=== PATIENT | female | born 1995 | race Caucasian/White ===

== ENCOUNTER 2021-07-17 05:18 | Emergency (ER) | payer BC ==
--- OUTSIDE RECORDS SUMMARY | 2021-07-17 05:21 | XMS REPORT | Continuity of Care Document ---
:1995 Author Organization [facility] t Address [address] [place] [place] [address] Care Team Providers Name Role Phone Ez VELA, Cam Attending Clinician Doctor Unassigned, Name Attending Clinician Unavailable Pob, Lab Main Attending Clinician Unavailable Lillian VELA Attending Clinician Unavailable 1.5, Josue Kerr Attending Clinician Unavailable Payers Payer Name Policy Type Policy Effective Date Expiration Date Sour ce Number BLUE CROSS/BLUE [id number] [address] [facility] [employer] PPO 00:00:00 - Medical POS EPO Center [id number] -Present [phone] [id number], [place] [address]VET Problems This patient has no known problems. Allergies, Adverse Reactions, Alerts Allergy Allergy Status Severity Reaction(s) Onset Inactive Treating Comm ents Source Name Type Date Date Clinician Hydrocod Drug Active 2019-[address] [facility]-Acet Allergy 0-20 [facility] - aminophe 00:00: Medical n 00 Center Mint Drug Active 2019-[address] [facility] Allergy 0-20 [facility] - 00:00: Medical 00 Center Red Propensi Active Hives, 2014-[address] [facility] (Food ty to Itching, 12-03 [facility] - Color) adverse Rash 00:00: Medical reaction 00 Center s Penicill Drug Active Anaphylaxis, [facility] Allergy Hives, 04-28 [facility] - Itching, 00:00: Medical Rash, 00 Center Swelling Poison Propensi Active Anaphylaxis, 1999-[address] [place] ty to Hives, 12-03 [facility] - Extract adverse Itching, 00:00: Medica l reaction Rash, 00 [place] s Shortness Of Breath, Swelling Midazola Drug Active Hives, 1999-12 Other [facility] m Allergy Itching, 12-03 reaction( Luke s - Nausea Only, 00:00: s): Medi kaitlynn Other (See [address] Comments), tions Swelling Poison Propensi Active Hives, 1999-[address] [place] ty to Itching, 12-03 [facility] - Extract adverse Rash, 00:00: Medical reaction Swelling 00 Center s Social History Social Habit Start Date Stop Date Quantity Comments Source Sex Assigned At [facility] Tobacco use and 2020-10-07 2020-10-07 Never used [facility] - exposure 00:00:00 00:00:00 [facility] Alcohol intake 2020-10-07 2020-10-07 Current drinker [facility] S adán [facility] - 00:00:00 00:00:00 of alcohol [facility] (finding) Alcohol Comment 2020-10-07 2020-10-07 [facility] - 00:00:00 00:00:00 [facility] Smoking Status Start Date Stop Date Source [facility] Medications Ordered Filled Start Stop Current Ordering Indication Dosage Frequency Signature Comments Components Source Medication Medication Date Date Medication? Clinician (SIG) Name Name multivitami 2019-12 Yes 1{capsu QD Take [address] n capsule 12-07 le} capsule by Samuel s - 07:07: mouth Medical 25 daily. Center levothyroxi 2018-12 Yes TK 1 T PO [facility] ne 0-02 QD [facility] - (SYNTHROID, 00:00: Medica l LEVOTHROID) 00 [place] 25 MCG tablet Vital Signs Vital Name Observation Time Observation Value Comments Source Systolic blood 2020-10-07 10:00:00 114 mm[Hg] [facility] pressure [facility] Diastolic blood 2020-10-07 10:00:00 76 mm[Hg] [facility] S t [facility] pressure [facility] Heart rate 2020-10-07 08:50:00 72 /min [facility] Body temperature 2020-10-07 08:50:00 37 [facility] Respiratory rate 2020-10-07 08:50:00 20 /min [facility] Oxygen saturation in 2020-10-07 08:50:00 99 /min [facility] - Arterial blood by Medical Ce nter Pulse oximetry Body height 2020-10-07 07:04:00 160 cm [facility] Body weight 2020-10-07 07:04:00 72.576 kg [facility] BMI 2020-10-07 07:04:00 28.34 kg/m2 [facility] Procedures Procedure Date / Time Performed Performing Clinician Sourc e FL LUMBAR PUNCTURE 2020-10-07 08:43:00 Jim Snyder [facility] - IMAGE-GUIDED [facility] MRA HEAD WITHOUT IV 2020-10-07 07:40:00 Jim Snyder [facility] CONTRAST [facility] Plan of Care Planned Activity Planned Date Details Comments Source Future Scheduled 2021-08-[address] [facility] - Test 00:00:00 (Season Ended) [code Medical Center = INFLUENZA VACCINE (Season Ended)] Future Scheduled 2020-12-[address] [facility] - Test 00:00:00 (12+) [code = [facility] DEPRESSION SCREENING (12+)] Future Scheduled [address] [facility] - Test 00:00:00 malignant neoplasm of [facility] cervix (procedure) [code = 130705956] Future Scheduled 2016 DTAP/TDAP/TD VACCINES [facility] - Test 00:00:00 (1 - Tdap) [code = Medical C enter DTAP/TDAP/TD VACCINES (1 - Tdap)] Future Scheduled 2015 HEPATITIS C [facility]CRE[facility]ING [facility] - Test 00:00:00 [code = HEPATITIS C Medical Center SCREENING] Future Scheduled 2009 COVID-19 VACCINE (1) [facility] - Test 00:00:00 [code = COVID-[address] VACCINE (1)] Encounters Start End Encounter Admission Attending Care Care Encounter Source Date/Time Date/Time Type Type Clinicians Facility Department ID 2021-04-04 2021-04-04 Telephone Grecia Hui [id number] 00:00:00 00:00:00 Cam [place] [id number] [place] [id number] Professio [phone] [facility] 2021-03-31 2021-03-31 Orders Doctor DEONTE [id number] 00:00:00 00:00:00 Only Unassigned, TASH [id number] [place] [facility] [id number] [id number] 2021-03-11 2021-03-11 Health Facilities Surveyor Chele Hdz [facility] [id number] 12:09:20 12:24:20 Visit Lab Main [place] [id number] [place] [id number] Professio [phone] [address] 2021-03-08 2021-03-08 Office Grecia Hui [facility] [id number] 13:57:12 15:12:09 Visit Cam [place] [id number] [place] [id number] Professio [phone] [address] 2021-03-08 2021-03-08 Orders Doctor DEONTE [id number] 00:00:00 00:00:00 Only Unassigned, TASH [id number] [id number] [id number] Results Test Description Test Time Test Comments Results Result [facility] e Comments MR, MRA, BRAIN, Unlisted Reason WITHOUT IV 9 for Exam - Click CONTRAST 07:27:00 Yes and Enter Reason [facility] - [facility]: d Reason for DAVIS MENJIVAR Exam->Sector CAR : scotoma bilateral 1995 Sex: F FINAL REPORT MR, MRA, BRAIN, WITHOUT IV CONTRAST HISTORY: Optic disc edema, bilateral sector scotoma COMPARISON: None. TECHNIQUE: Sagittal 3D and 2-D intracranial yuxo-by-vyfrtf MR venogram images were obtained without contrast. Maximum intensity projection images were created. FINDINGS: Deep:Internal cerebral veins: Patent.Vein of Dilan: Patent. Superficial:Superio r sagittal sinus: Patent.Straight sinus: Patent.Transverse/s igmoid sinuses: Patent on the left. 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 Incidental findings: Small left maxillary sinus retention cyst and suspected large right maxillary sinus retention cyst. The palatine, lingual, and adenoid tonsils are mildly prominent. 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 Further evaluation with CT venogram is recommended if clinically feasible (to confirm degree of stenosis/hypoplasia and evaluate size of right jugular foramen).2.No other intracranial MR venogram abnormalities. Signed: Samir Meléndez MDReport Verified Date/Time: 10/10/2020 07:27:44 Reading Location: [facility] Reading Room [address] [place] [address] head without Interface, External [facility] contrast 9 Ris In - 10/10/2020 Luke s - 07:27:00 7:29 AM CSTFINAL Medical REPORT PATIENT ID: [place] [id number] MR, MRA, BRAIN, WITHOUT IV CONTRAST HISTORY: Optic disc edema, bilateral sector scotoma COMPARISON: None. TECHNIQUE: Sagittal 3D and 2-D intracranial gziq-wx-tgajgo MR venogram images were obtained without contrast. Maximum intensity projection images were created. FINDINGS: Deep:Internal cerebral veins: Patent.Vein of Dilan: Patent. Superficial:Superio r sagittal sinus: Patent.Straight sinus: Patent.Transverse/s igmoid sinuses: Patent on the left. 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 Incidental findings: Small left maxillary sinus retention cyst and suspected large right maxillary sinus retention cyst. The palatine, lingual, and adenoid tonsils are mildly prominent. 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 Further evaluation with CT venogram is recommended if clinically feasible (to confirm degree of stenosis/hypoplasia and evaluate size of right jugular foramen).2.No other intracranial MR venogram abnormalities. Signed: Samir Meléndez Verified Date/Time: 10/10/2020 07:27:44 Reading Location: [facility] Reading Room [address] [place] [address] , LUMBAR Labs to be PUNCTURE, FLUORO 6 ordered:->No Labs 09:34:00 NeededReason for Exam:->Sector [facility] - scotoma bilateral MEDICAL CENTERName: DAVIS MENJIVAR : 1995 Sex: F FINAL REPORT FLUOROSCOPIC-GUIDED LUMBAR PUNCTURE Indication: Fluoroscopic-guided lumbar puncture is requested for CSF analysis; bilateral sector scotoma, headache Comparison: None. Discussion: Following the explanation of risks, benefits and alternative treatment options, informed consent was obtained. The patient was placed in left lateral decubitus position on the fluoroscopic table and prepped and draped in sterile fashion. 1% Xylocaine was used for local anesthesia. Under fluoroscopic guidance, a 22-gauge spinal needle was advanced into the thecal sac from a posterior approach at the L3-L4 level and through this approximately 10 mL CSF were removed and sent for analysis. Opening pressure was 48 cm of H2O. The needle was removed. The patient tolerated the procedure well and left the room in satisfactory condition without complication. Fluoroscopy time = 20 secondsDose area product (mGy*cm\S\2) = 1155Ref. Air Kerma (mGy) = 7.3 Two fluoroscopic images were sent to the PACS system. Dylw-qe-qtyi time with the patient was approximately 40 minutes. IMPRESSION: Successful fluoroscopic guided lumbar puncture. Elevated opening pressure of 48 cm of H2O. Signed: Samir Meléndez Verified Date/Time: 10/07/2020 09:34:57 Reading Location: [facility] Reading Room [address] [place] [address] Lumbar Interface, External [facility] t Puncture 6 Ris In - 10/07/2020 [facility] - Image-Guided 09:34:00 9:37 AM CSTFINAL Medic al REPORT PATIENT ID: Center [id number] FLUOROSCOPIC-GUIDED LUMBAR PUNCTURE Indication: Fluoroscopic-guided lumbar puncture is requested for CSF analysis; bilateral sector scotoma, headache Comparison: None. Discussion: Following the explanation of risks, benefits and alternative treatment options, informed consent was obtained. The patient was placed in left lateral decubitus position on the fluoroscopic table and prepped and draped in sterile fashion. 1% Xylocaine was used for local anesthesia. Under fluoroscopic guidance, a 22-gauge spinal needle was advanced into the thecal sac from a posterior approach at the L3-L4 level and through this approximately 10 mL CSF were removed and sent for analysis. Opening pressure was 48 cm of H2O. The needle was removed. The patient tolerated the procedure well and left the room in satisfactory condition without complication. Fluoroscopy time = 20 secondsDose area product (mGy*cm\S\2) = 1155Ref. Air Kerma (mGy) = 7.3 Two fluoroscopic images were sent to the PACS system. Ojvp-ud-kzqt time with the patient was approximately 40 minutes. IMPRESSION: Successful fluoroscopic guided lumbar puncture. Elevated opening pressure of 48 cm of H2O. Signed: Samir Meléndez Verified Date/Time: 10/07/2020 09:34:57 Reading Location: [facility] Room [address] [place] [address]
[2021-07-17 08:55] LABS: Urine Blood Negative (Negative); Urine Glucose Negative (Negative); Urine Protein Negative (Negative); Urine pH 5.5 (5.0-7.0)
[2021-07-17 09:18] LABS: Absolute Lymphocytes (CBC) 2.1 K/uL (0.7-4.9); Basophils % 0.4 % (0-1.3); Hematocrit 37.6 % (36.0-45.0); Lymphocytes % 31.3 % (15.3-44.8); MPV 8.3 fL (7.6-11.3); RBC Red Blood Cell Count 4.42 M/uL (3.86-4.86)
--- NOTE | 2021-07-17 09:25 | RAD REPORT ---
EXAM DESCRIPTION: CTAbdomen Pelvis W Contrast - 07/17/2021 9:13 am CLINICAL HISTORY: Abdominal pain. ABD PAIN COMPARISON: No comparisons TECHNIQUE: Biphasic CT imaging of the abdomen and pelvis was performed with 100 ml non-ionic IV cont rast. All CT scans are performed using dose optimization technique as appropriate and may include automated exposure control or mA/KV adjustment according to patient size. FINDINGS: The lung bases are clear. The liver, spleen, pancreas, adrenal glands and kidneys are within normal limits. Incidentally noted focal fat along the falciform ligament. Nondistended gallbladder but with some pericholecystic edema. No bowel obstruction, free air, free fluid or abscess. The appendix is normal. No evidence of signi ficant lymphadenopathy. Small fat containing umbilical hernia. No suspicious bony findings. IMPRESSION: Pericholecystic edema. Consider gallbladder ultrasound for further evaluation. No other acute findings are identified.
[2021-07-17 09:44] LABS: ALT/SGPT 26 U/L (12-78); AST/SGOT 13 U/L (15-37); Albumin 4.1 g/dL (3.4-5.0); Alkaline Phosphatase 51 U/L (45-117); BUN Blood Urea Nitrogen 7 mg/dL (7-18); Bicarbonate 29 mmol/L (21-32); Bilirubin Direct 0.1 mg/dL (0-0.2); Bilirubin Total 0.3 mg/dL (0.2-1.0); Glucose Level 96 mg/dL (74-106); Lipase 67 U/L (73-393); Potassium 3.6 mmol/L (3.5-5.1); Protein, Total 7.1 g/dL (6.4-8.2); Sodium Level 141 mmol/L (136-145)
--- NOTE | 2021-07-17 10:13 | RAD REPORT ---
EXAM DESCRIPTION: US - Abdomen Exam Limited - 07/17/2021 10:06 am CLINICAL HISTORY: EPIGASTRIC PAIN COMPARISON: Abdomen Pelvis W Contrast dated 07/17/2021 FINDINGS: Contractor gallbladder which is full shadowing stones. The gallbladder wall measures 2 mil limeter which is norm. Negative sonographic Anaya's sign. No pericholecystic fluid is identified. Th e common bile duct measures 3 millimeters and is normal. IMPRESSION: Cholelithiasis without sonographic evidence acute cholecystitis.
--- NOTE | 2021-07-17 10:20 | ER ---
Nurse's Notes [facility] Name: Georgina Mccann Age: 26 yrs Sex: Female : 1995 Arrival Date: 07/17/2021 Time: 05:21 Bed 9 Private MD: Diagnosis: Cholelithiasis Presentation: 07/17 05:45 Chief complaint: Patient states: she has been having epigastric pain intermittently for bb a couple of years but it has never lasted more than 10 minutes tonight it lasted 3.5 hours and she was nauseous. Coronavirus screen: At this time, the client does not indicate any symptoms associated with coronavirus-19. Ebola Screen: No symptoms or risks identified at this time. Initial Sepsis Screen: Does the patient meet any 2 criteria? No. Patient's initial sepsis screen is negative. Does the patient have a suspected source of infection? No. Patient's initial sepsis screen is negative. Risk Assessment: Do you want to hurt yourself or someone else? Patient reports no desire to harm self or others. Onset of symptoms was July 16, 2021. 05:45 Method Of Arrival: Ambulatory bb 05:45 Acuity: GASTON 3 bb Triage Assessment: 05:47 General: Appears in no apparent distress. Behavior is calm, cooperative. Pain: bb Complains of pain in epigastric area Pain currently is 1 out of 10 on a pain scale. Neuro: Level of Consciousness is awake, alert, obeys commands, Oriented to person, place, time, situation. Cardiovascular: Capillary refill < 3 seconds Patient's skin is warm and dry. Respiratory: Respiratory effort is even, unlabored, Respiratory pattern is regular. GI: Abdomen is non-distended, Reports upper abdominal pain, nausea. Derm: Skin is pink, warm \T\ dry. Musculoskeletal: Circulation, motion, and sensation intact. 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 - Social history:: Smoking status: Patient denies any tobacco usage or history of. Vital Signs: 05:45 BP 139 / 83; Pulse 81; Resp 16 S; Temp 99.2(O); Pulse Ox 100% on R/A; Weight 68.95 kg bb (R); Height 5 ft. 3 in. (160.02 cm) (R); Pain /10; 05:45 Body Mass Index 26.93 (68.95 kg, 160.02 cm) bb ED Course: 05:21 Patient arrived in ED. wm 05:47 Triage completed. bb 05:47 Arm band placed on Patient placed in waiting room, Patient notified of wait time. bb 08:03 Balwinder Jordan NP is PHCP. pm1 08:03 Shellie Moore is Attending Physician. pm1 08:32 Kirti Aparicio, RN is Primary Nurse. iw 09:13 CT Abd/Pelvis - IV Contrast Only In Process Unspecified. EDMS 10:02 US Abdomen Limited In Process Unspecified. EDMS 10:19 Isacc Das MD is Referral Physician. pm1 10:43 IV discontinued, intact, bleeding controlled, No redness/swelling at site. Pressure iw dressing applied. Administered Medications: 10:22 Not Given (Physician Discretion): Ondansetron 4 mg PO once; ODT iw 10:22 Drug: Zofran (Ondansetron) 4 mg Route: IVP; Site: left antecubital; iw 10:32 Follow up: Response: No adverse reaction iw Outcome: 10:19 Discharge ordered by . pm1 10:48 Patient left the ED. iw Signatures: Dispatcher [employer] EDMS Mera Mathis RN RN bb Kirti Aparicio RN RN iw Balwinder Jordan NP SEED [facility] pm1 Sandi Madsen
--- NOTE | 2021-07-17 10:21 | EDPHYS ---
Physician Documentation Formerly [facility] Name: Georgina Mccann Age: 26 yrs Sex: Female : 1995 Arrival Date: 07/17/2021 Time: 05:21 Bed 9 Private MD: ED Physician Shellie Moore HPI: 07/17 09:37 This 26 yrs old Female presents to ER via Ambulatory with complaints of pm1 Epigastric Pain. 09:37 The patient presents with abdominal pain in the epigastric area. Onset: The pm1 symptoms/episode began/occurred this morning, at 01:00. The symptoms radiate to right back. Associated signs and symptoms: Pertinent positives: nausea, Pertinent negatives: chest pain, diarrhea, shortness of breath, vomiting. The symptoms are described as achy, constant. Modifying factors: The symptoms are alleviated by nothing, the symptoms are aggravated by nothing. Severity of pain: in the emergency department the pain has resolved and did so earlier today. The patient has experienced similar episodes in the past, multiple times. The patient has not recently seen a physician. Patient reports history of epigastric pain for multiple years, comes and goes. Onset in her teenage years and was evaluated by music educator in cardiac etiology ruled out. But has not had any gastroenterology evaluation. Today her pain lasted longer than her usual duration of pain. Pain usually with onset at night. 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 - Social history:: Smoking status: Patient denies any tobacco usage or history of. ROS: 09:37 Constitutional: Negative for fever, chills, and weight loss, Cardiovascular: Negative pm1 for chest pain, palpitations, and edema, Respiratory: Negative for shortness of breath, cough, wheezing, and pleuritic chest pain. 09:37 Back: Negative for injury and pain, MS/Extremity: Negative for injury and deformity, Skin: Negative for injury, rash, and discoloration. 09:37 Neuro: Negative for headache, weakness, numbness, tingling, and seizure. 09:37 Abdomen/GI: Positive for abdominal pain, nausea, Negative for vomiting, diarrhea, constipation. 09:37 All other systems are negative. pm1 Exam: 09:37 Constitutional: This is a well developed, well nourished patient who is awake, alert, pm1 and in no acute distress. Head/Face: Normocephalic, atraumatic. 09:37 Back: No spinal tenderness. No costovertebral tenderness. Full range of motion. Skin: Warm, dry with normal turgor. Normal color with no rashes, no lesions, and no evidence of cellulitis. MS/ Extremity: Pulses equal, no cyanosis. Neurovascular intact. Full, normal range of motion. 09:37 Eyes: Exam is negative for acute changes, Extraocular movements: no acute changes, Conjunctiva: normal, no injection. 09:37 ENT: Exam is negative for acute changes, Mouth: Lips: normal, Oral mucosa: normal, pink and intact, moist. 09:37 Cardiovascular: Exam negative for acute changes, Rate: normal, Rhythm: regular, Pulses: no pulse deficits are appreciated, Heart sounds: normal, normal S1and S2. 09:37 Respiratory: Exam negative for acute changes, respiratory distress, shortness of breath, Breath sounds: are clear throughout. 09:37 Abdomen/GI: Exam negative for acute changes, Inspection: abdomen appears normal, Palpation: abdomen is soft and non-tender, in all quadrants. 09:37 Neuro: Exam negative for acute changes, Orientation: is normal, Mentation: is normal, Motor: is normal, moves all fours. Vital Signs: 05:45 BP 139 / 83; Pulse 81; Resp 16 S; Temp 99.2(O); Pulse Ox 100% on R/A; Weight 68.95 kg bb (R); Height 5 ft. 3 in. (160.02 cm) (R); Pain 1/10; 05:45 Body Mass Index 26.93 (68.95 kg, 160.02 cm) bb MDM: 08:38 Patient medically screened. pm1 09:41 ED course: Informed the patient of current CT findings and recommendation for pm1 ultrasound radiologist for further evaluation. 09:51 Data reviewed: vital signs. Data interpreted: Pulse oximetry: on room air is 100 %. pm1 Interpretation: normal. 10:18 Counseling: I had a detailed discussion with the patient and/or guardian regarding: the pm1 historical points, exam findings, and any diagnostic results supporting the discharge/admit diagnosis, lab results, radiology results, the need for outpatient follow up, a general surgeon, to return to the emergency department if symptoms worsen or persist or if there are any questions or concerns that arise at home. 07/17 08:27 Order name: Basic Metabolic Panel; Complete Time: 09:48 pm1 07/17 08:27 Order name: CBC with Diff; Complete Time: 09:33 pm1 07/17 08:27 Order name: Hepatic Function; Complete Time: 09:48 pm1 07/17 08:27 Order name: Lipase; Complete Time: 09:48 pm1 07/17 08:55 Order name: Urine Dipstick-Ancillary; Complete Time: 09:33 EDMS 07/17 08:59 Order name: Urine --Ancillary (enter results); Complete Time: 09:56 iw 07/17 08:27 Order name: IV Saline Lock; Complete Time: 08:58 pm1 07/17 08:27 Order name: Labs collected and sent; Complete Time: 08:58 pm1 07/17 08:27 Order name: CT Abd/Pelvis - IV Contrast Only; Complete Time: 09:33 pm1 07/17 08:27 Order name: Urine Dipstick-Ancillary (obtain specimen); Complete Time: 08:58 pm1 07/17 09:35 Order name: US Abdomen Limited; Complete Time: 10:17 pm1 07/17 08:27 Order name: Urine Test (obtain specimen); Complete Time: 08:58 pm1 07/17 09:36 Order name: NPO; Complete Time: 10:17 pm1 Administered Medications: 10:22 Not Given (Physician Discretion): Ondansetron 4 mg PO once; ODT iw 10:22 Drug: Zofran (Ondansetron) 4 mg Route: IVP; Site: left antecubital; iw 10:32 Follow up: Response: No adverse reaction iw Disposition: 16:45 Co-signature as Attending Physician, Shellie Moore I agree with the assessment and plan sp3 of care. Disposition Summary: 07/17/21 10:19 Discharge Ordered Location: Home pm1 Problem: new pm1 Symptoms: have improved pm1 Condition: Stable pm1 Diagnosis - Cholelithiasis pm1 Followup: pm1 - With: Emergency Department - When: As needed - Reason: Worsening of condition Followup: pm1 - With: Isacc Das MD - When: 2 - 3 days - Reason: Recheck today's complaints, Continuance of care, Re-evaluation by your physician Discharge Instructions: - Discharge Summary Sheet pm1 - Cholelithiasis pm1 Forms: - Work release form iw - Medication Reconciliation Form pm1 - Thank You Letter pm1 - Antibiotic Education pm1 - Prescription Opioid Use pm1 Prescriptions: - ondansetron 4 mg Oral tablet,disintegrating - place 1 tablet by TRANSLINGUAL route every 8 hours As needed; 15 tablet; pm1 Refills: 0, Product Selection Permitted - dicyclomine 20 mg Oral Tablet - take 1 tablet by ORAL route every 6 hours As needed; 20 tablet; Refills: 0, pm1 Product Selection Permitted Signatures: Dispatcher [employer] Mera Rock RN RN bb Williams, Irene, RN RN iw Marinas, Patrick, IZABELA PHYSICIAN INTERVENTIONAL CARDIOLOGIST pm1 Shellie Moore sp3 Corrections: (The following items were deleted from the chart) 09:49 09:37 Onset: The symptoms/episode began/occurred this morning, pm1 pm1
[2021-07-17] MEDS ORDERED: ONDANSETRON 4 MG/2 ML VIAL ONE (10:42)
[2021-07-17 10:55] VITALS: BP 139/83; TEMP 99.2; O2SAT 100
== END 2021-07-17 10:48 | disposition home or self-care (01) ==
LOC: ER 05:18
DX: K80.20 Calculus of gallbladder without cholecystitis without obstruction (principal); E03.9 Hypothyroidism, unspecified; Z88.0 Allergy status to penicillin; Z88.8 Allergy status to other drugs, medicaments and biological substances
CPT/HCPCS: 85025; 80048; 36415; 81025; 82565; 80076; 81003; 83690; 74177; 76705; Q9967; J2405; 96374; 99283

== ENCOUNTER 2021-07-26 08:09 | Day surgery (SDC) | payer BC ==
[2021-07-26] MEDS ORDERED: CEFOXITIN/SWI 1gm 0 GM/0 ML SYR ONE (08:58)
[2021-07-26] MEDS ORDERED: Ringers Lactate 1,000 ML IV ONE ×2 (08:58→11:10)
[2021-07-26] MEDS ORDERED: propofoL 200 MG/20 ML VIAL IV ONE (09:04)
[2021-07-26] MEDS ORDERED: MIDAZOLAM HCL 2 MG/2 ML INJ ONE (09:04)
[2021-07-26] MEDS ORDERED: LIDOCAINE 1% MPF 2 ML AMPULE ONE (09:04)
[2021-07-26] MEDS ORDERED: FENTANYL CITR 100 MCG/2 ML ONE (09:04)
[2021-07-26 09:09] VITALS: O2SAT 100
[2021-07-26] MEDS ORDERED: ROCURONIUM 50 MG/5 ML VIAL IV ONE (09:21)
[2021-07-26] MEDS ORDERED: BUPIVACAINE 0.25% PF 10 ML VIAL ONE (09:51)
[2021-07-26] MEDS ORDERED: CLINDAMYCIN 300MG D5W 300 MG/50 ML BAG IV ONE (10:00)
[2021-07-26] MEDS ORDERED: dexAMETHasone 10 MG/ML VIAL ONE (10:10)
[2021-07-26] MEDS ORDERED: KETOROLAC 30 MG/ML INJ ONE (10:10)
[2021-07-26] MEDS ORDERED: ONDANSETRON 4 MG/2 ML VIAL ONE (10:11)
[2021-07-26] MEDS ORDERED: NEOSTIGMINE 1 MG/ML -5 ML ONE (10:25)
[2021-07-26] MEDS ORDERED: GLYCOPYRROLATE 0.2 MG/ML SYR ONE ×2 (10:25)
--- NOTE | 2021-07-26 10:41 | P.OP ---
Preoperative diagnosis: Cholecystitis with Cholelithiasis Postoperative diagnosis: Cholecystitis with Cholelithiasis Primary procedure: Laparoscopic Cholecystectomy Secondary procedure: ICG Cholangiography Anesthesia: GETA + Local Estimated blood loss: <20cc Specimen: Gallbladder Findings: floppy gallbladder, anterior / posterior branch of cystic artery Complications: None Transferred to: Recovery Room Condition: Good
--- NOTE | 2021-07-26 11:14 | OP ---
Date of Procedure: 07/26/2021 Surgeon: Isacc Das MD, Preoperative Diagnosis: Cholecystitis with cholelithiasis. Postoperative Diagnosis: Cholecystitis with cholelithiasis. Procedures Performed: 1.Laparoscopic cholecystectomy. 2.ICG cholangiography. Anesthesia: General endotracheal plus local with 0.25% Marcaine. Estimated Blood Loss: Less than 20 mL. Specimen: Gallbladder. Findings: 1.Floppy gallbladder, distended with stones. 2.Anterior posterior branch of the cystic artery. Complications: None. Disposition: The patient was transferred to recovery room in good condition. Procedure In Detail: After informed consent was obtained, the patient was brought to the operating r oom, prepped and draped in the usual sterile fashion after adequate anesthesia was achieved. Supraum bilical area was anesthetized with 0.25% Marcaine and sharply incised. A 5 mm 0-degree optical troca r was introduced in the abdomen without evidence of complication. Insufflation was obtained to 15 mm Hg at this time. There was no injury to vital structures upon entry to the abdomen. Two additional trocars were placed, 1 in the epigastrium and 1 in the right upper quadrant. Both of these were cristóbal larly anesthetized and sharply incised. A 5 mm trocars were placed under direct visualization withou t evidence of complication. The umbilical trocar was then up-sized to a 12 mm under direct visualiza tion without evidence of complication. The patient positioned head up right-side up position. Ratch eted grasper was used to grasp the patient's gallbladder, placed toward the patient's right shoulder. Dissection continued down to the Varsha pouch of the gallbladder. ICG cholangiography was perfor med at this point to visualize the cystic duct and common duct confluence and junction. The cystic d uct was skeletonized along with additional structures identified as the anterior posterior branch of cystic artery. These were skeletonized and the structures were noted to be entering the gallbladder. After these structure was skeletonized, critical view of safety was obtained at this point. Double titanium clips were placed doubly on the proximal side and singly on the distal side of both cystic duct and cystic arteries. At this point, the structures were ligated with Endo Merlin. The gallblad lan was then removed from the hepatic fossa with minimal bleeding from the hepatic fossa requiring so me fulguration in which hemostasis was achieved at this point with minimal blood loss. The gallbladd er was then placed in EndoCatch bag, removed the umbilical trocar, sent off for pathologic examinatio n. The abdomen was copiously irrigated multiple times and suctioned out until completely clear. Cli ps were found to be in good anatomic position without any bleeding. No additional hemostatic maneuve rs were required. The patient was positioned back in neutral position. Then, the effluent was sucti oned out. The patient's umbilical trocar site was then closed using a Gurpreet-Star suture passer with 0 Vicryl in an interrupted fashion with good approximation of tissues. The remaining trocars we re removed. The abdomen was completely desufflated. All skin incisions were copiously irrigated and closed with 4-0 Monocryl in a running fashion and Dermabond placed over top. The patient tolerated the procedure well without evidence of complication and transferred to PACU in good condition. All c ounts were correct at the end of the case. LIZ/MARIAN Voice ID: [id number] Report ID: [id number]
[2021-07-26] MEDS: FENTANYL CITR 100 MCG/2 ML ONE ×2 (11:28→11:35)
[2021-07-26] MEDS ORDERED: PROMETHAZINE INJ 25 MG/ML AMP ONE (11:37)
[2021-07-26] MEDS ORDERED: MEPERIDINE HCL 25 MG/ML SYR ONE (11:42)
[2021-07-26 12:01] VITALS: BP 117/60; TEMP 97.9
[2021-07-26] MEDS ORDERED: HYDROCODONE/APAP 7.5/325 MG TAB ONE (12:49)
== END 2021-07-26 13:00 | disposition home or self-care (01) ==
LOC: OR 08:09
PROVIDERS: ATTEND Surgery
PROC: BF03YZZ Plain Radiography of Gallbladder and Bile Ducts using Other Contrast (ICD-10-PCS; 2021-07-26)
PROC: 0FT44ZZ Resection of Gallbladder, Percutaneous Endoscopic Approach (ICD-10-PCS; principal; 2021-07-26 10:00)
DX: K80.10 Calculus of gallbladder with chronic cholecystitis without obstruction (principal); Z20.822 Contact with and (suspected) exposure to COVID-19
CPT/HCPCS: 36415; 84703; 88304; 47563; U0003; J2704; J2550; J3010 ×2; J1100; J2175; J2710; J7120 ×2; J2405; J2250

== ENCOUNTER 2021-08-03 00:29 | Emergency (ER) | payer BC ==
--- OUTSIDE RECORDS SUMMARY | 2021-08-03 00:33 | XMS REPORT | Continuity of Care Document ---
:1995 Author Organization [facility] t Address [address] [place] [place] [address] Care Team Providers Name Role Phone Ez VELA, David Attending Clinician Doctor Unassigned, Name Attending Clinician Unavailable Pob, Lab Main Attending Clinician Unavailable Lillian VELA Attending Clinician Unavailable 1.5, Josue Kerr Attending Clinician Unavailable Payers Payer Name Policy Type Policy Number Effective Date Expiration Date S ource Problems This patient has no known problems. [...] Propensi Active Anaphylaxis, 1999-[address] [place] ty to Hives, 12-03 [facility] - Extract adverse Itching, 00:00: Medica l reaction Rash, 00 Center s Shortness Of Breath, Swelling [facility] Active Hives, 1999-[address] [facility] Allergy Itching, 12-03 reaction( Luke s - Nausea Only, 00:00: s): Medi kaitlynn Other (See [address] Comments), tions Swelling Poison Propensi Active Hives, 1999-[address] [place] [facility] to Itching, 12-03 [facility] - Extract adverse Rash, 00:00: Medical reaction Swelling 00 Center s Social History Social Habit Start Date Stop Date Quantity Comments Source Sex Assigned At F [facility] The [facility] Tobacco use and 2020-10-07 2020-10-07 Never used BRITANY Ortiz kes - exposure 00:00:00 00:00:00 [facility] Center Alcohol intake 2020-10-07 2020-10-07 Current drinker BRITANY mccain [facility] - 00:00:00 00:00:00 of alcohol [facility] (finding) Alcohol Comment 2020-10-07 2020-10-07 occ [facility] Diamond kes - 00:00:00 00:00:00 Medical Center Smoking Status Start Date Stop Date Source Never smoker [facility] edical [place] Medications Ordered Filled Start Stop Current Ordering Indication Dosage Frequency Signature Comments Components Source Medication Medication Date Date Medication? Clinician (SIG) [facility] 2019[facility] Yes 1{capsu QD Take [address] n capsule 1-06 le} capsule by Samuel s - 07:07: mouth Medical 25 daily. Center multivitami 2019-12 Yes 1{capsu QD Take [address] n capsule 1-06 le} capsule by Darake s - 07:07: mouth Medical 25 daily. [place] levothyroxi 2018-12 Yes TK [address] [facility] ne 0-02 QD [facility] - (SYNTHROID, 00:00: Medica l LEVOTHROID) 00 Center 25 MCG tablet levothyroxi 2018-12 Yes TK [address] T [address] [facility] 0-02 QD [facility] - (SYNTHROID, 00:00: Medica l LEVOTHROID) 00 Center 25 MCG tablet Vital Signs Vital Name Observation Time Observation Value Comments Source Systolic blood 2020-10-07 10:00:00 114 mm[Hg] [facility] St kes pressure [facility] Diastolic blood 2020-10-07 10:00:00 76 mm[Hg] [facility] S [facility] Heart rate 2020-10-07 08:50:00 72 /min [facility] Body temperature 2020-10-07 08:50:00 37 Eleonora [facility] Respiratory rate 2020-10-07 08:50:00 20 /min [facility] Oxygen saturation in 2020-10-07 08:50:00 99 /min [facility] - Arterial blood by Medical Ce nter Pulse oximetry Body height 2020-10-07 07:04:00 160 cm [facility] Body weight 2020-10-07 07:04:00 72.576 kg [facility] BMI 2020-10-07 07:04:00 28.34 kg/m2 [facility] Procedures Procedure Date / Time Performed Performing Clinician Sour e FL LUMBAR PUNCTURE 2020-10-07 08:43:00 Jim Snyder BRITANY [facility] IMAGE-GUIDED [facility] MRA HEAD WITHOUT IV 2020-10-07 07:40:00 Jim Snyder [facility] CONTRAST [facility] Plan of Care Planned Activity Planned Date Details Comments Source Future Scheduled 2021-08-[address] [facility] - Test 00:00:00 (Season Ended) [code Medical Center = INFLUENZA VACCINE (Season Ended)] Future Scheduled 2021-08-[address] [facility] - Test 00:00:00 (Season Ended) [code Medical Center = INFLUENZA VACCINE (Season Ended)] Future Scheduled 2020-12-[address] [facility] - Test 00:00:00 (12+) [code = [facility] DEPRESSION SCREENING (12+)] Future Scheduled 2020-12-[address] [facility] - Test 00:00:00 (12+) [code = [facility] DEPRESSION SCREENING (12+)] Future Scheduled [address] - Test 00:00:00 malignant neoplasm of [facility] cervix (procedure) [code = 441362371] Future Scheduled [address] [facility] - Test 00:00:00 malignant [facility] cervix (procedure) [code = 269754397] Future Scheduled 2016 DTAP/TDAP/TD VACCINES [facility] - Test 00:00:00 (1 - Tdap) [code = Medical C enter DTAP/TDAP/TD VACCINES (1 - Tdap)] Future Scheduled 2016 DTAP/TDAP/TD VACCINES [facility] - Test 00:00:00 (1 - Tdap) [code = Medical C enter DTAP/TDAP/TD VACCINES (1 - Tdap)] Future Scheduled 2015 HEPATITIS C [facility]CREENING [facility] - Test 00:00:00 [code = HEPATITIS C Medical Center SCREENING] Future Scheduled 2015 HEPATITIS C [facility]CRE[facility]ING [facility] Test 00:00:00 [code = HEPATITIS C Medical Center SCREENING] Future Scheduled 2009 COVID-19 VACCINE (1) [facility] - Test 00:00:00 [code = COVID-[address] VACCINE (1)] Future Scheduled 2009 COVID-19 VACCINE (1) [facility] - Test 00:00:00 [code = COVID-[address] VACCINE (1)] Encounters Start End Encounter Admission Attending Care Care Encounter Source Date/Time Date/Time Type Type Clinicians Facility Department ID 2021-04-04 2021-04-04 Telephone Grecia Hui WAJORDI [id number] 00:00:00 00:00:00 David Felipe [id number] [place] [id number] Professio [id number] [facility] 2021-03-31 2021-03-31 Orders Doctor DEONTE [id number] 00:00:00 00:00:00 Only Unassigned, TASH [id number] [place] [facility] [id number] 2021-03-11 2021-03-11 Program Technician Chele Hdz [id number] 12:09:20 12:24:20 Visit Lab Main [place] [id number] Karen [id number] Professio [id number] [facility] 2021-03-08 2021-03-08 Office Grecia Hui WAJORDI [id number] 13:57:12 15:12:09 Visit David Felipe [id number] [place] [id number] [place] [id number] [address] 2021-03-08 2021-03-08 Orders DEONTE [id number] 00:00:00 00:00:00 Only Unassigned, TASH [id number] [place] [id number] 2020-10-07 2020-10-07 [facility] [id number] [facility] 06:21:32 23:59:00 Encounter [facility] 2020-10-07 2020-10-[address] [facility] [id number] [facility] 06:21:25 23:59:00 Encounter 1.5, [facility] Josue [facility] 2020-09-20 2020-09-20 [facility] [id number] [facility] 00:00:00 00:00:00 Orders [facility] Results Test Description Test Time Test Comments Results Result [facility] e Comments MR, MRA, BRAIN, Unlisted Reason WITHOUT IV 9 for Exam - Click CONTRAST 07:27:00 Yes and Enter Reason [facility] - Below->[facility] Reason for DAVIS MENJIVAR Exam->Sector CAR : scotoma bilateral 1995 Sex: F FINAL REPORT MR, MRA, BRAIN, WITHOUT IV CONTRAST HISTORY: Optic disc edema, bilateral sector scotoma COMPARISON: None. TECHNIQUE: Sagittal 3D and 2-D intracranial plto-fl-soeyxs MR venogram images were obtained without contrast. [...] intracranial MR venogram abnormalities. Signed: Samir Meléndez [facility] Verified Date/Time: 10/10/2020 07:27:44 Reading Location: [facility] Reading Room [address] [place] [address] head without 0 Interface, External [facility] contrast 9 Ris In - 10/10/2020 [facility] - 07:27:00 7:29 AM CSTFINAL Medical REPORT PATIENT ID: [place] [id number] MR, MRA, BRAIN, WITHOUT IV CONTRAST HISTORY: Optic disc edema, bilateral sector scotoma COMPARISON: None. TECHNIQUE: Sagittal 3D and 2-D intracranial zmhz-an-rkpdxf MR venogram images were obtained without contrast. [...] Meléndez Verified Date/Time: 10/10/2020 07:27:44 Reading Location: [facility] Reading Room [address] [place] [address] head without Interface, External [facility] IV contrast 9 Ris In - 10/10/2020 Luke [facility] - 07:27:00 7:29 AM CSTFINAL Medical REPORT PATIENT ID: Center [id number] MR, MRA, BRAIN, WITHOUT IV CONTRAST HISTORY: Optic disc edema, bilateral sector scotoma COMPARISON: None. TECHNIQUE: Sagittal 3D and 2-D intracranial zizp-dt-ewbwee MR venogram images were obtained without contrast. [...] Meléndez Verified Date/Time: 10/10/2020 07:27:44 Reading Location: [facility] Reading Room [address] [place] [address] , LUMBAR Labs to be PUNCTURE, FLUORO [...] images were sent to the PACS system. Vwqr-tg-aupg time with the patient was approximately 40 minutes. IMPRESSION: Successful fluoroscopic guided lumbar puncture. Elevated opening pressure of 48 cm of H2O. Signed: Samir Meléndez Verified Date/Time: 10/07/2020 09:34:57 Reading Location: [facility] Reading Room [address] [place] [address] Lumbar 2020-11-0 Interface, External [facility] Puncture 6 Ris In - 10/07/2020 [facility] - Image-Guided 09:34:00 9:37 AM CSTFINAL Medic al REPORT PATIENT ID: Meli [id number] FLUOROSCOPIC-GUIDED LUMBAR PUNCTURE Indication: Fluoroscopic-guided lumbar puncture [...] images were sent to the PACS system. Gjvd-qq-hjkp time with the patient was approximately 40 minutes. IMPRESSION: Successful fluoroscopic guided lumbar puncture. Elevated opening pressure of 48 cm of H2O. Signed: Samir Meléndez Verified Date/Time: 10/07/2020 09:34:57 Reading Location: [facility] Room [address] [place] [address] Lumbar 2019-11-0 Interface, External [facility] t Puncture 6 Ris In - 10/07/2020 [facility] - Image-Guided 09:34:00 9:37 AM CSTFINAL Medic al REPORT PATIENT ID: Center [id number] FLUOROSCOPIC-GUIDED LUMBAR PUNCTURE Indication: Fluoroscopic-guided lumbar puncture [...] images were sent to the PACS system. Zdii-ya-cfnc time with the patient was approximately 40 minutes. IMPRESSION: Successful fluoroscopic guided lumbar puncture. Elevated opening pressure of 48 cm of H2O. Signed: Samir Meléndez MDReport Verified Date/Time: 10/07/2020 09:34:57 Reading Location: [facility] Room [address] [place] [address]
[2021-08-03] MEDS ORDERED: ONDANSETRON 4 MG/2 ML VIAL ONE (01:15)
[2021-08-03] MEDS ORDERED: MORPHINE 4 MG/ML SYR ONE (01:16)
[2021-08-03 01:31] LABS: Absolute Lymphocytes (CBC) 1.3 K/uL (0.7-4.9); Basophils % 0.5 % (0-1.3); Hematocrit 39.1 % (36.0-45.0); Lymphocytes % 25.4 % (15.3-44.8); MPV 8.5 fL (7.6-11.3); RBC Red Blood Cell Count 4.63 M/uL (3.86-4.86)
[2021-08-03 01:42] LABS: Urine Blood 2+ (Negative); Urine Glucose Negative (Negative); Urine Protein Negative (Negative); Urine Specific Gravity 1.025 (1.005-1.030)
[2021-08-03 01:49] LABS: Albumin 4.5 g/dL (3.4-5.0); Alkaline Phosphatase 305 U/L (45-117); BUN Blood Urea Nitrogen 14 mg/dL (7-18); Bicarbonate 25 mmol/L (21-32); Bilirubin Direct 1.6 mg/dL (0-0.2); Bilirubin Total 2.2 mg/dL (0.2-1.0); Glucose Level 101 mg/dL (74-106); Lipase 135 U/L (73-393); Potassium 3.2 mmol/L (3.5-5.1); Protein, Total 7.8 g/dL (6.4-8.2); Sodium Level 139 mmol/L (136-145)
[2021-08-03 01:50] LABS: ALT/SGPT 1460 U/L (12-78); AST/SGOT 841 U/L (15-37)
--- NOTE | 2021-08-03 01:59 | EDPHYS ---
Physician Documentation [facility] Name: Georgina Mccann Age: 26 yrs Sex: Female : 1995 Arrival Date: 08/03/2021 Time: 00:31 Bed 5 Private MD: ED Physician Juan Antonio Valladares HPI: 08/03 00:56 This 26 yrs old Female presents to ER via Ambulatory with complaints of maria fernanda Abdominal Pain - Had Gallbladder Surgery A Wk Ago. 00:56 The patient presents with abdominal pain in the epigastric area, in the upper abdomen. maria fernanda Onset: The symptoms/episode began/occurred 3 day(s) ago. The symptoms radiate to back. Associated signs and symptoms: none. The symptoms are described as constant, crampy. Modifying factors: The symptoms are alleviated by nothing, the symptoms are aggravated by nothing. Severity of pain: At its worst the pain was mild moderate in the emergency department the pain has improved mildly. The patient has not experienced similar symptoms in the past. 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 - Social history:: Smoking status: Patient denies any tobacco usage or history of. - Family history:: not pertinent. ROS: 00:56 Constitutional: Negative for fever, chills, and weight loss, Eyes: Negative for injury, maria fernanda pain, redness, and discharge, ENT: Negative for injury, pain, and discharge, Neck: Negative for injury, pain, and swelling, Cardiovascular: Negative for chest pain, palpitations, and edema, Respiratory: Negative for shortness of breath, cough, wheezing, and pleuritic chest pain, Back: Negative for injury and pain, : Negative for injury, bleeding, discharge, and swelling, MS/Extremity: Negative for injury and deformity, Skin: Negative for injury, rash, and discoloration, Neuro: Negative for headache, weakness, numbness, tingling, and seizure, Psych: Negative for depression, anxiety, suicide ideation, homicidal ideation, and hallucinations, Allergy/Immunology: Negative for hives, rash, and allergies, Endocrine: Negative for neck swelling, polydipsia, polyuria, polyphagia, and marked weight changes, Hematologic/Lymphatic: Negative for swollen nodes, abnormal bleeding, and unusual bruising. 00:56 Abdomen/GI: Positive for abdominal pain, of the epigastric area, right upper quadrant and left upper quadrant. Exam: 00:56 Constitutional: This is a well developed, well nourished patient who is awake, alert, maria fernanda and in no acute distress. Head/Face: Normocephalic, atraumatic. Eyes: Pupils equal round and reactive to light, extra-ocular motions intact. Lids and lashes normal. Conjunctiva and sclera are non-icteric and not injected. Cornea within normal limits. Periorbital areas with no swelling, redness, or edema. ENT: Nares patent. No nasal discharge, no septal abnormalities noted. Tympanic membranes are normal and external auditory canals are clear. Oropharynx with no redness, swelling, or masses, exudates, or evidence of obstruction, uvula midline. Mucous membranes moist. Neck: Trachea midline, no thyromegaly or masses palpated, and no cervical lymphadenopathy. Supple, full range of motion without nuchal rigidity, or vertebral point tenderness. No Meningismus. Chest/axilla: Normal chest wall appearance and motion. Nontender with no deformity. No lesions are appreciated. Cardiovascular: Regular rate and rhythm with a normal S1 and S2. No gallops, murmurs, or rubs. Normal PMI, no JVD. No pulse deficits. Respiratory: Lungs have equal breath sounds bilaterally, clear to auscultation and percussion. No rales, rhonchi or wheezes noted. No increased work of breathing, no retractions or nasal flaring. Back: No spinal tenderness. No costovertebral tenderness. Full range of motion. Skin: Warm, dry with normal turgor. Normal color with no rashes, no lesions, and no evidence of cellulitis. MS/ Extremity: Pulses equal, no cyanosis. Neurovascular intact. Full, normal range of motion. Neuro: Awake and alert, GCS 15, oriented to person, place, time, and situation. Cranial nerves II-XII grossly intact. Motor strength 5/5 in all extremities. Sensory grossly intact. Cerebellar exam normal. Normal gait. Psych: Awake, alert, with orientation to person, place and time. Behavior, mood, and affect are within normal limits. 00:56 Abdomen/GI: Inspection: abdomen appears normal, Bowel sounds: normal, Palpation: moderate abdominal tenderness, in the epigastric area, right upper quadrant and left upper quadrant. Vital Signs: 00:47 BP 140 / 90; Pulse 98; Resp 18 S; Temp 98.3(O); Pulse Ox 100% on R/A; Weight 68.95 kg bb (R); Height 5 ft. 3 in. (160.02 cm) (R); Pain 8/10; 01:15 BP 117 / 80; Pulse 77; Resp 17; Temp 98.2; Pulse Ox 98% on R/A; ch4 02:06 BP 109 / 81; Pulse 65; Resp 17; Temp 98.3; Pulse Ox 97% on R/A; ch4 00:47 Body Mass Index 26.93 (68.95 kg, 160.02 cm) bb MDM: 00:51 Patient medically screened. maria fernanda 00:57 Differential diagnosis: bowel obstruction, diverticulitis, gastritis, non-specific abd maria fernanda pain, Peptic Ulcer Disease, Ureterolithiasis, urinary tract infection. Data reviewed: vital signs, nurses notes, lab test result(s), radiologic studies, CT scan. 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 Test interpretation: by ED physician or midlevel provider:. Counseling: I had a detailed discussion with the patient and/or guardian regarding: the historical points, exam findings, and any diagnostic results supporting the discharge/admit diagnosis, lab results, radiology results. 08/03 00:48 Order name: Basic Metabolic Panel [facility] 08/03 00:48 Order name: CBC with Diff [facility] 08/03 00:48 Order name: Hepatic Function [facility] 08/03 00:48 Order name: Lipase [facility] 08/03 00:48 Order name: Basic Metabolic Panel; Complete Time: 01:51 [facility] 08/03 00:48 Order name: CBC with Automated Diff; Complete Time: 01:51 [facility] 08/03 00:49 Order name: Liver (Hepatic) Function; Complete Time: 01:51 EDMS 08/03 00:49 Order name: Lipase; Complete Time: 01:51 EDMS 08/03 01:42 Order name: Urine Dipstick-Ancillary; Complete Time: 01:51 EDMS 08/03 01:44 Order name: Urine --Ancillary (enter results) [facility] 08/03 01:44 Order name: Urine Microscopic Only [facility] 08/03 01:44 Order name: Urine --Ancillary; Complete Time: 03:41 EDMS 08/03 01:44 Order name: Urine Microscopic Only; Complete Time: 02:14 EDVT 08/03 00:48 Order name: IV Saline Lock; Complete Time: 01:10 [facility] 08/03 00:48 Order name: Labs collected and sent; Complete Time: 01:09 [facility] 08/03 00:48 Order name: Urine Dipstick-Ancillary (obtain specimen); Complete Time: 01:26 [facility] 08/03 00:48 Order name: CT Abd/Pelvis - IV Contrast Only [facility] 08/03 02:14 Order name: Urine Culture [facility] 08/03 03:14 Order name: SARS-COV-2 RT PCR; Complete Time: 03:41 EDMS Administered Medications: 01:00 Drug: morphine 4 mg {Note: RASS 0.} Route: IVP; Site: right antecubital; bb 01:01 Drug: Zofran (Ondansetron) 4 mg Route: IVP; Site: right antecubital; bb 03:05 Drug: levofloxacin 500 mg Volume: 100 ml; Route: IVPB; Infused Over: 60 mins; Site: ch4 left antecubital; 04:29 Drug: NS 0.9% with KCl 20 mEq/L 1000 ml Route: IV; Rate: 125 ml/hr; Site: right ch4 antecubital; Point of Care Testing: Urine : 01:38 hCG Reading: Negative; Control Reading: Positive; ch4 Disposition Summary: 08/03/21 01:59 Transfer Ordered Transfer Location: [facility] maria fernanda Reason: Higher level of care maria fernanda Condition: Stable maria fernanda Problem: new maria fernanda Symptoms: have improved maria fernanda Accepting Physician: to [facility] [place](08/03/21 04:49) ch4 Diagnosis - Upper abdominal pain, unspecified - choledocolithiasis maria fernanda Forms: - Medication Reconciliation Form maria fernanda - SBAR form maria fernanda Signatures: Dispatcher [employer] EDMS Juan Antonio Valladares MD MD cha Mickail, Joel, PA PA jmm Ballard, Brenda, RN RN bb Ranulfo Harrington, LOCAL DELIVERY TRUCK DRIVER-C LOCAL DELIVERY TRUCK DRIVER-Cla1 Cecile Gomez RN RN ch4 Corrections: (The following items were deleted from the chart) 02:17 02:03 CORONAVIRUS+.BRZ ordered. EDVT EDMS 04:49 01:59 to [facility] maria fernanda ch4
--- NOTE | 2021-08-03 01:59 | ER ---
Nurse's Notes [facility] Name: Georgina Mccann Age: 26 yrs Sex: Female : 1995 Arrival Date: 08/03/2021 Time: 00:31 Bed 5 Private MD: Diagnosis: Upper abdominal pain, unspecified-choledocolithiasis Presentation: 08/03 00:47 Chief complaint: Patient states: she had gallbladder surgery last week and has been bb having intermittent pain tonight it got worse denies vomiting or diarrhea positive for nausea. Coronavirus screen: At this time, the client does not indicate any symptoms associated with coronavirus-19. Ebola Screen: No symptoms or risks identified at this time. Initial Sepsis Screen: Does the patient meet any 2 criteria? No. Patient's initial sepsis screen is negative. Does the patient have a suspected source of infection? No. Patient's initial sepsis screen is negative. Risk Assessment: Do you want to hurt yourself or someone else? Patient reports no desire to harm self or others. Onset of symptoms was August 03, 2021. 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 - Social history:: Smoking status: Patient denies any tobacco usage or history of. - Family history:: not pertinent. Screenin:55 Abuse screen: Denies threats or abuse. Nutritional screening: No deficits noted. bb Tuberculosis screening: No symptoms or risk factors identified. Fall Risk None identified. Assessment: 00:55 General: Appears in no apparent distress. uncomfortable, Behavior is cooperative, bb anxious. Pain: Complains of pain in abdomen Pain currently is 8 out of 10 on a pain scale. Neuro: Level of Consciousness is awake, alert, obeys commands, Oriented to person, place, time, situation. Cardiovascular: Capillary refill < 3 seconds Patient's skin is warm and dry. Respiratory: Respiratory effort is even, unlabored, Respiratory pattern is regular. GI: Reports upper abdominal pain, nausea, Patient currently denies diarrhea, vomiting. Derm: Skin is pink, warm \T\ dry. Musculoskeletal: Circulation, motion, and sensation intact. 02:07 Reassessment: Patient is alert, oriented x 3, equal unlabored respirations, skin ch4 warm/dry/pink. Patient states feeling better. GI: No deficits noted. : No deficits noted. 04:36 GI: ch4 Vital Signs: 00:47 BP 140 / 90; Pulse 98; Resp 18 S; Temp 98.3(O); Pulse Ox 100% on R/A; Weight 68.95 kg bb (R); Height 5 ft. 3 in. (160.02 cm) (R); Pain 8/10; 01:15 BP 117 / 80; Pulse 77; Resp 17; Temp 98.2; Pulse Ox 98% on R/A; ch4 02:06 BP 109 / 81; Pulse 65; Resp 17; Temp 98.3; Pulse Ox 97% on R/A; ch4 00:47 Body Mass Index 26.93 (68.95 kg, 160.02 cm) ED Course: 00:31 Patient arrived in ED. 00:49 Triage completed. bb 00:49 Arm band placed on Patient placed in an exam room, on a stretcher, on pulse oximetry. bb Family accompanied patient. 00:51 Juan Antonio Valladares MD is Attending Physician. [facility] 00:55 Patient has correct armband on for positive identification. Call light in reach. Side bb rails up X 1. Adult w/ patient. Pulse ox on. NIBP on. Warm blanket given. 01:00 Initial lab(s) drawn, by me, sent to lab. Inserted saline lock: 20 gauge in right bb antecubital area, using aseptic technique. Blood collected. 01:22 Cecile Gomez, RN is Primary Nurse. ch4 01:46 Urine --Ancillary (enter results) Sent. ch4 01:46 Urine Microscopic Only Sent. ch4 01:46 Basic Metabolic Panel Sent. ch4 02:03 initiated a transfer with Soco from [facility]. mw2 02:15 CT Abd/Pelvis - IV Contrast Only In Process Unspecified. EDMS 02:[address] Valladares with the Doctor from [facility]. mw2 03:18 called Soco from [facility] to mastercam programmer her patients covid result. mw2 03:[address] Valladares with Dr. Collier from [facility]. mw2 Administered Medications: 01:00 Drug: morphine 4 mg {Note: RASS 0.} Route: IVP; Site: right antecubital; bb 01:01 Drug: Zofran (Ondansetron) 4 mg Route: IVP; Site: right antecubital; bb 03:05 Drug: levofloxacin 500 mg Volume: 100 ml; Route: IVPB; Infused Over: 60 mins; Site: ch4 left antecubital; 04:29 Drug: NS 0.9% with KCl 20 mEq/L 1000 ml Route: IV; Rate: 125 ml/hr; Site: right ch4 antecubital; Point of Care Testing: Urine : 01:38 hCG Reading: Negative; Control Reading: Positive; ch4 Outcome: 01:59 ER care complete, transfer ordered by MD. irving 04:49 Patient left the ED. ch4 Signatures: Dispatcher [employer] EDMS Juan Antonio Valladares MD MD cha Ballard, Brenda, RN RN Frank Gamez mw2 Sandi Madsen Christina, RN RN ch4 Corrections: (The following items were deleted from the chart) 01:09 01:00 morphine 4 mg IVP in right antecubital reuben alexis
[2021-08-03 02:12] LABS: Urine Mucus 1+ /HPF (NONE SEEN); Urine Urothelial Cells <5 /HPF (NONE SEEN)
[2021-08-03 02:13] LABS: Urine Bacteria 20-50 /HPF (<20); Urine RBC <5 /HPF (NONE SEEN)
[2021-08-03 02:14] LABS: Urine Specific Gravity/Preg 1.025 (1.005-1.030)
[2021-08-03] MEDS ORDERED: Levofloxacin500mg IV 500 MG/100 ML BAG IV ONE (03:28)
[2021-08-03] MEDS ORDERED: NS KCL 20MEQ 1,000 ML IV ONE (04:35)
[2021-08-03 04:59] VITALS: BP 109/81; TEMP 98.3; O2SAT 97
--- NOTE | 2021-08-03 10:53 | RAD REPORT ---
EXAM DESCRIPTION: CT - Abdomen Pelvis W Contrast - 08/03/2021 6:37 am COMPARISON: None. CLINICAL HISTORY: Abdominal pain, post carmen TECHNIQUE: CT of the abdomen and pelvis was acquired with IV contrast material. Coronal and sagitt al reconstructions were obtained. Automated exposure control was utilized on this examination as a dose lowering technique. FINDINGS: Lung bases: Clear. Liver: Normal. Gallbladder and biliary: Cholecystectomy. Trace fluid in the gallbladder fossa measuring 2.9 cm. Unre markable biliary tree. Pancreas: Normal. Spleen: Normal. Adrenal glands: Normal adrenal glands. Kidneys: Normal kidneys Stomach and Small Bowel: The stomach and small bowel are normal. Urinary bladder: Normal. Uterus and Adnexa: Normal. Colon and Appendix: The colon is unremarkable. No evidence of appendicitis. Retroperitoneum and lymph nodes: Normal. Vascular: Unremarkable. Peritoneal cavity: No ascites or free air. Musculoskeletal and soft tissues: Soft tissues are unremarkable. No aggressive bone lesions. No com pression fracture. IMPRESSION: Postsurgical changes of cholecystectomy with trace fluid in the gallbladder fossa. No ot her acute intra-abdominal abnormality. Electronically signed by: Surya Alvarenga MD 08/03/2021 2:34 AM CDT Due to temporary technical issues with the PACS/Fluency reporting system, reports are being signed by the in house radiologists without review as a courtesy to insure prompt reporting. The interpreting radiologist is fully responsible for the content of the report.
== END 2021-08-03 04:49 | disposition short-term general hospital (02) ==
LOC: ER 00:29
DX: K80.50 Calculus of bile duct without cholangitis or cholecystitis without obstruction (principal); Z90.49 Acquired absence of other specified parts of digestive tract; E03.9 Hypothyroidism, unspecified; Z20.822 Contact with and (suspected) exposure to COVID-19; Z88.0 Allergy status to penicillin; Z88.5 Allergy status to narcotic agent; Z88.8 Allergy status to other drugs, medicaments and biological substances
CPT/HCPCS: 87088; 85025; 87086; 80048; 36415; 81025; 80076; 83690; 74177; 99284; U0003; Q9967; J2405; J3480; 81003; 81015